=== PATIENT | female | born 1995 | race African-American/Black ===

== ENCOUNTER 2017-03-08 21:22 | Emergency (ER) | payer OTHER, SELFPAY ==
[~2017-03-08] VITALS: Ht 162.6 cm; Wt 135.6 kg
[~2017-03-08 21:22] MED LIST: ACETAMINOPHEN-1 EAC1 ORAL; BACTRIM DS TAB1 EAC1 ORAL; BENAZEPRIL HCL10 MG ORAL; GLIPIZIDE10 MG PO; GLUCOTROL XL10 MG ORAL; IBUPROFEN600 MG ORAL; KEFLEX500 MG ORAL; LANTUS SOL100 UNIT/1 SUBQ; MACROBID100 MG ORAL; METFORMIN HCL500 M4 ORAL; UNOBMED
[2017-03-08] MEDS ORDERED: NKM (21:29)
[2017-03-08 21:30] VITALS: BP 135/82
--- NOTE | 2017-03-08 21:40 | Emergency Room Report ---
History of Present Illness General Chief Complaint: Abdominal Pain Source: Patient Present Illness HPI Is a 21-year-old female with a history of diabetes. She presents with chief complaint abdominal pain with profuse diarrhea for last 3 days. Cramping sharp pain. 8/10. Ambia nauseous and has one episode of vomiting a day. No fever chills nothing made it better. Nothing made it worse. Able to keep things down. No recent antibiotics or travel. Allergies: Coded Allergies: No Known Allergies (Unverified , 02/18/12) Patient History Past Medical History: see triage record, old chart reviewed, DM Past Surgical History: none Pertinent Family History: none Social History: Denies: smoking Last Menstrual Period: 02/06/17 Now: No Immunizations: other Reviewed Nursing Documentation: PMH: Agreed, PSxH: Agreed Nursing Documentation-PMH Past Medical History: No History, Except For Hx Diabetes: Yes Review of Systems Eye: Denies: eye pain, blurred vision ENT: Denies: ear pain, nose congestion, throat swelling Respiratory: Denies: cough, shortness of breath Cardiovascular: Denies: chest pain, palpitations Gastrointestinal: Reports: abdominal pain, diarrhea, nausea, vomiting Musculoskeletal: Denies: back pain, joint pain Skin: Denies: rash Neurological: Denies: headache, numbness Endocrine: Denies: increased thirst, increased urine Hematologic/Lymphatic: Denies: easy bruising All Other Systems: negative except mentioned in HPI Physical Exam Vital Signs Date Time Temp Pulse Resp B/P (MAP) Pulse Ox O2 Delivery O2 Flow Rate FiO2 03/08/17 21:24 98.1 101 16 135/82 98 Room Air vitals normal Sp02 EP Interpretation: reviewed, normal General Appearance: well appearing, no apparent distress, alert, obese Head: normocephalic, atraumatic Eyes: bilateral eye PERRL, bilateral eye EOMI ENT: hearing grossly normal, normal pharynx Neck: full range of motion, supple, no meningismus Respiratory: chest non-tender, lungs clear, normal breath sounds Cardiovascular #1: regular rate, rhythm, no murmur Gastrointestinal: non tender, no mass, no organomegaly, no bruit, non-distended , abnormal bowel sounds - Hyperactive Musculoskeletal: back normal, gait/station normal, normal range of motion Psychiatric: mood/affect normal Skin: warm/dry Medical Decision Making Diagnostic Impression: Primary Impression: Abdominal pain Qualified Codes: R10.84 - Generalized abdominal pain Additional Impressions: Hyperglycemia due to type 2 diabetes mellitus Qualified Codes: E11.65 - Type 2 diabetes mellitus with hyperglycemia; Z79.4 - penitentiary (current) use of insulin Hypertension Qualified Codes: I10 - Essential (primary) hypertension Noncompliance Morbid obesity with BMI of 50.0-59.9, adult ER Course Patient present with abdominal pain and diarrhea. Her blood sugar is very high here. She has a history of diabetes and supposed to be on Lantus 30 units at night. Also supposed to be on glipizide 10 mg and metformin 500 mg twice a day. She also has high blood pressure and supposed to be on benazeprill. She has been taking her medication for over 2 months now. She said that it upset her stomach and cause her to have diarrhea. Patient felt better now. Able to tolerate by mouth. On recheck she has no abdominal pain. No evidence of acute abdomen or obstruction. Insulin given. We'll discharge home. Lab Results Impression labs with hyperglycemia Last Vital Signs Date Time Temp Pulse Resp B/P (MAP) Pulse Ox O2 Delivery O2 Flow Rate FiO2 03/08/17 21:24 98.1 101 16 135/82 98 Room Air Status: improved Disposition: HOME, SELF-CARE Condition: Stable Scripts Metformin Hcl* (METFORMIN HCL*) 500 Mg Tablet 500 MG ORAL TWICE A DAY, #60 TAB Prov: ALEXIS CHAPMAN M.D. 03/08/17 Glipizide* (GLUCOTROL*) 10 Mg Tablet 10 MG ORAL ACBREAKFAST, #30 TAB 0 Refills Prov: ALEXIS CHAPMAN M.D. 03/08/17 Benazepril Hcl* (BENAZEPRIL HCL*) 20 Mg Tablet 20 MG ORAL EVERY 12 HOURS, #30 TAB Prov: ALEXIS CHAPMAN M.D. 03/08/17 Insulin Glargine (LANTUS) 100 Unit/1 Ml Insuln.pen 30 UNITS SUBQ BEDTIME, #1 EA 0 Refills Prov: ALEXIS CHAPMAN M.D. 03/08/17 Patient Instructions: Abdominal Pain, Adult Additional Instructions: Followup with your Dr. in 2 to 3 days. Take your diabetes medication. Return if symptom worsen. ALEXIS CHAPMAN M.D. Mar 08, 2017 21:39
[2017-03-08] MEDS ORDERED: Ketorolac 30mg Inj IV ONE (21:45)
[2017-03-08 21:49] LABS: APPEARANCE,URINE CLEAR; BILIRUBIN, URINE NEGATIVE (NEGATIVE); COLOR,URINE PALE YELLOW; GLUCOSE, URINE (UA) 4+ (NEGATIVE); KETONES,URINE NEGATIVE (NEGATIVE); LEUKOCYTE ESTERASE ,URINE NEGATIVE (NEGATIVE); NITRITE,URINE NEGATIVE (NEGATIVE); PH,URINE 7 (4.5-8.0); PROTEIN,URINE NEGATIVE (NEGATIVE); UROBILINOGEN,URINE 1 MG/DL (0.0-1.0)
[2017-03-08 22:10] LABS: BASOPHILS % (AUTO) 0.6 % (0.0-2.0); EOSINOPHILS % (AUTO) 0.9 % (0.0-3.0); HEMATOCRIT 46.9 % (37.0-47.0); HEMOGLOBIN 14.8 G/DL (12.0-16.0); LYMPHOCYTES % (AUTO) 27.4 % (20.0-45.0); MEAN CORPUSCULAR VOLUME 86 FL (80-99); MONOCYTES % (AUTO) 4.1 % (1.0-10.0); PLATELET COUNT 264 K/UL (150-450); RED BLOOD COUNT 5.47 M/UL (4.20-5.40); RED CELL DISTRIBUTION WIDTH 11.4 % (11.6-14.8); WHITE BLOOD COUNT 12.1 K/UL (4.8-10.8)
[2017-03-08 22:29] LABS: ALANINE AMINOTRANSFERASE 13 U/L (12-78); ALBUMIN 3.7 G/DL (3.4-5.0); ALBUMIN/GLOBULIN RATIO 0.8 (1.0-2.7); ALKALINE PHOSPHATASE 133 U/L (46-116); ANION GAP 10 mmol/L (5-15); ASPARTATE AMINO TRANSFERASE 8 U/L (15-37); BILIRUBIN,TOTAL 0.3 MG/DL (0.2-1.0); BLOOD UREA NITROGEN 5 mg/dL (7-18); CALCIUM 9.4 MG/DL (8.5-10.1); CARBON DIOXIDE 24 MMOL/L (21-32); CHLORIDE 96 MMOL/L (98-107); POTASSIUM 3.8 MMOL/L (3.5-5.1); SODIUM 130 MMOL/L (136-145)
[2017-03-08] MEDS ORDERED: METFORMIN HCL500 M1 ORAL (22:52)
[2017-03-08] MEDS ORDERED: LANTUS SOL100 UNIT/1 SUBQ (22:52)
[2017-03-08] MEDS ORDERED: GLUCOTROL10 MG ORAL (22:52)
[2017-03-08] MEDS ORDERED: BENAZEPRIL HCL20 MG ORAL (22:52)
[2017-03-08 23:30] VITALS: BP 135/79
[2017-03-08 23:45] VITALS: BP 130/79
== END 2017-03-08 23:45 | disposition home or self-care (01) ==
LOC: MERGE 21:50 → EMR 21:50
DX: R10.84 Generalized abdominal pain (principal); E11.65 Type 2 diabetes mellitus with hyperglycemia; Z79.4 Long term (current) use of insulin; I10 Essential (primary) hypertension; Z91.19 Patient's noncompliance with other medical treatment and regimen; E66.01 Morbid (severe) obesity due to excess calories; Z68.43 Body mass index [BMI] 50.0-59.9, adult
CPT/HCPCS: 36415; 80053; 81003; 81025; 82962; 83690; 85025; 96361; 96374; 96375; 99284; J1815; J1885

== ENCOUNTER 2020-01-11 21:25 | Emergency (ER) | payer OTHER ==
[~2020-01-11] VITALS: Ht 162.6 cm; Wt 88.0 kg
[~2020-01-11 21:25] MED LIST changes: +BENAZEPRIL HCL20 MG ORAL; +GLUCOTROL10 MG ORAL; +METFORMIN HCL500 M1 ORAL; +NKM
[2020-01-11 21:40] VITALS: BP 160/98
[2020-01-11 22:00] LABS: APPEARANCE,URINE SLIGHTLY CLOUDY; BILIRUBIN, URINE NEGATIVE (NEGATIVE); COLOR,URINE AMBER; GLUCOSE, URINE (UA) 2+ (NEGATIVE); KETONES,URINE 2+ (NEGATIVE); LEUKOCYTE ESTERASE ,URINE 1+ (NEGATIVE); NITRITE,URINE NEGATIVE (NEGATIVE); PH,URINE 7 (4.5-8.0); PROTEIN,URINE 1+ (NEGATIVE); UROBILINOGEN,URINE 4 MG/DL (0.0-1.0)
[2020-01-11] MEDS ORDERED: Morphine Sulfate 4mg/ml Inj (IV USE ONLY) IVP ONE (22:00)
[2020-01-11 22:07] LABS: BASOPHILS % (AUTO) 1.1 % (0.0-2.0); EOSINOPHILS % (AUTO) 0.3 % (0.0-3.0); HEMATOCRIT 41.9 % (37.0-47.0); HEMOGLOBIN 13.5 G/DL (12.0-16.0); LYMPHOCYTES % (AUTO) 19.3 % (20.0-45.0); MEAN CORPUSCULAR VOLUME 91 FL (80-99); MONOCYTES % (AUTO) 4.5 % (1.0-10.0); NEUTROPHILS % (AUTO) 74.8 % (45.0-75.0); PLATELET COUNT 160 K/UL (150-450); RED BLOOD COUNT 4.58 M/UL (4.20-5.40); RED CELL DISTRIBUTION WIDTH 12.4 % (11.6-14.8); WHITE BLOOD COUNT 13.1 K/UL (4.8-10.8)
[2020-01-11 22:13] LABS: INR 1.1 (0.9-1.1)
[2020-01-11 22:16] LABS: ANION GAP 3 mmol/L (5-15); BLOOD UREA NITROGEN 7 mg/dL (7-18); CALCIUM 9.5 MG/DL (8.5-10.1); CARBON DIOXIDE 32 MMOL/L (21-32); CHLORIDE 103 MMOL/L (98-107); CREATININE 0.8 MG/DL (0.55-1.30); POTASSIUM 3.6 MMOL/L (3.5-5.1); SODIUM 138 MMOL/L (136-145)
[2020-01-11 22:21] LABS: ALANINE AMINOTRANSFERASE 17 U/L (12-78); ALBUMIN 3.8 G/DL (3.4-5.0); ALKALINE PHOSPHATASE 83 U/L (46-116); ASPARTATE AMINO TRANSFERASE 15 U/L (15-37); BILIRUBIN,TOTAL 0.5 MG/DL (0.2-1.0)
--- NOTE | 2020-01-11 22:49 | Emergency Room Report ---
History of Present Illness General Chief Complaint: Abdominal Pain Source: Patient Present Illness HPI 24-year-old female with past medical history of left ovarian cyst and marijuana use presents with diffuse abdominal pain x4 days. Patient states that she just moved here from [facility]. She was in the ER [facility] yesterday and was diagnosed with a left ovarian cyst. She tried smoking marijuana today 2 hours prior to arrival to alleviate her pain, however it made it worse. She is nauseous but does not endorse any vomiting, dysuria, hematuria, vaginal discharge. She is sexually active and not concern for sexually transmitted infection. Last menstrual period was 3 weeks ago. Last Pap smear was several years ago. She does not know what the results were. She had a similar episode several years ago during [facility] time and received an EGD which found gastritis, otherwise no ulcerations or other acute findings. Last bowel movement was several days ago. Last p.o. intake was yesterday. The patient's symptoms were gradual onset, severity was moderate, duration since 4 days. Quality: Aching, cramping Past medical history: Gastritis, left ovarian cyst Past surgical history: Denies Smoking: Denies Alcohol use: Occasional Drug use: Marijuana Review of systems: CONST: No fevers or chills, No night sweats PULMONARY: No productive cough, No shortness of breath CARDIAC: No chest pain, No palpitations GI: No vomiting, No diarrhea , No melena_or_BRBPR : No dysuria, No hematuria, No discharge NEURO: No new_focal_weakness_or_numbness, No confusion, No vision changes 14 point Review of Systems is otherwise negative except per HPI Physical Exam: GENERAL: Awake_alert_ nontoxic, no acute distress Spo2 92% on RA -normal EYES: Extraocular muscles are intact. Conjunctivae clear. Lids without swelling ENT: External nose and ear normal_in_appearance. Oropharynx clear. Head_ atraumatic, Moist_oral_mucosa NECK: No JVD. No meningismus. No thyromegaly. Supple. Trachea midline RESP: Normal respiratory effort. Symmetric rise. No stridor. Clear_to_ auscultation_No_rales_No_wheezes CARDIAC: Tachycardic. And regular rhytm. No_significant pedal edema. ABDOMEN: Soft. Nondistended. Nontender_No_rebound_or_guarding. No CVA tenderness palpation. Negative Joya's. Negative Rovsing's. Negative obturator sign MSK: Normal muscle tone, without rigidity. Extremities without asymmetric deformity or swelling. SKIN: Warm and dry. No visible cyanosis or pallor NEUROLOGIC: Alert, oriented x3. Motor_and_sensation_grossly_intact. No truncal ataxia. Gait_normal Psych: Normal mood and affect, normal judgment and insight - COORDINATION OF CARE Case was discussed with: Patient Any labs and imaging that were ordered were interpreted as part of the medical decision making: Medical Decision Making/Plan: Differential diagnosis includes cyclic vomiting syndrome from marijuana , appendicitis, diverticulitis, ectopic , ovarian torsion, hemorrhagic ovarian cyst, PID (pelvic inflammatory disease), kidney stone, UTI, DOUBTsmall bowel obstruction, volvulus, AAA, pancreatitis, among others. Patient is well appearing with stable vital signs. Abdominal exam is non peritoneal with no guarding or rebound. No CVA tenderness to palpation. UDS is positive for marijuana and opiates. She is not . No metabolic abnormalities. test is negative, ruling out ectopic . CT and US pending. Care signed out to oncoming ER physician Dr Olmedo pending imaging ED intervention included morphine and zofran for pain control. May benefit from haldol if nausea persists. The patient has no significant risk factors for AAA (abdominal aortic aneurysm) such as age over 50 with history of hypertension, connective tissue disorder, or 1st degree relative with AAA. In addition, the patient has normal dorsalis pedis pulses, no radiation of pain to the back, and no pulsatile mass felt on exam. The patients profile was overall low risk for AAA and definitive workup was not pursued. The patients presentation is not consistent with ovarian torsion or hemorrhagic ovarian cyst, pain was not sudden onset, not associated with vomiting, and has no significant tenderness on exam. The patient denies any bloody stool and has no pain out of proportion to exam, and no significant risk factors for mesenteric ischemia such as atrial fibrillation or severe PAD/PVD (peripheral arterial / vascular disease), thus definitive workup to rule out mesenteric ischemia was not pursued. Allergies: Coded Allergies: No Known Allergies (Unverified , 08/23/15) COVID-19 Screening Contact w/high risk pt: No Experienced COVID-19 symptoms?: No COVID-19 Testing performed POWERHOUSE OPERATOR: No Patient History Last Menstrual Period: 12/17 Now: No : 0 Para: 0 Nursing Documentation-PMH Hx Hypertension: Yes Hx Diabetes: Yes Physical Exam Vital Signs Date Time Temp Pulse Resp B/P (MAP) Pulse Ox O2 Delivery O2 Flow Rate FiO2 01/11/20 21:30 98.1 104 22 161/111 (128) 98 Room Air 01/11/20 21:40 99 Sp02 EP Interpretation: reviewed, normal Medical Decision Making Diagnostic Impression: Primary Impression: Abdominal pain Additional Impression: Nausea & vomiting Last Vital Signs Date Time Temp Pulse Resp B/P (MAP) Pulse Ox O2 Delivery O2 Flow Rate FiO2 01/11/20 21:40 98.1 100 23 160/98 99 Room Air 01/11/20 21:40 99 Admit Decision Time: 22:53 Condition: Stable Referrals: TAHIRA MCWILLIAMS,REFERRING (PCP) Marley Alba D.O. Jan 11, 2020 22:49
--- NOTE | 2020-01-11 23:06 | Diagnostic Imaging Report ---
EXAM: CT Abdomen and Pelvis Without Intravenous Contrast CLINICAL HISTORY: ABD PAIN Per notes, nausea vomiting and lower abdominal pain. TECHNIQUE: Axial computed tomography images of the abdomen and pelvis without intravenous contrast. CTDI is 10 mGy and DLP is 541 mGy-cm. One or more of the following dose reduction techniques were used: automated exposure control, adjustment of the mA and/or kV according to patient size, use of iterative reconstruction technique. COMPARISON: CT abdomen and pelvis 08/23/2015. FINDINGS: Evaluation of the vasculature and soft tissue limited on this noncontrast exam. Lung bases: Unremarkable. No mass. No consolidation. ABDOMEN: Liver: Hepatomegaly otherwise unremarkable. Gallbladder and bile ducts: Contracted. No extrahepatic biliary ductal dilatation seen. Pancreas: Unremarkable. No ductal dilation. Spleen: Unremarkable. No splenomegaly. Adrenals: Unremarkable. No mass. Kidneys and ureters: Unremarkable. No obstructing stones. No hydronephrosis. Stomach and bowel: Unremarkable. No obstruction. No mucosal thickening. PELVIS: Appendix: Normal appearing appendix (coronal 8: 42). Bladder: Unremarkable. No stones. Reproductive: Unremarkable as visualized. ABDOMEN and PELVIS: Intraperitoneal space: Unremarkable. No free air. No significant fluid collection. No ascites. Bones/joints: Unremarkable. Soft tissues: Diffuse anasarca. Vasculature: Unremarkable. No abdominal aortic aneurysm. Lymph nodes: Unremarkable. No enlarged lymph nodes. IMPRESSION: No acute findings identified on this noncontrast CT to explain the patient's symptoms. Nonspecific diffuse anasarca. Hepatomegaly.
[2020-01-11] MEDS ORDERED: IBUPROFEN600 M1 ORAL (23:08)
[2020-01-11] MEDS ORDERED: ONDANSETRON ODT4 MG BC (23:10)
--- NOTE | 2020-01-11 23:10 | Emergency Room Report ---
Physical Exam Vital Signs Date Time Temp Pulse Resp B/P (MAP) Pulse Ox O2 Delivery O2 Flow Rate FiO2 01/11/20 21:30 98.1 104 22 161/111 (128) 98 Room Air 01/11/20 21:40 99 Medical Decision Making Diagnostic Impression: Primary Impression: Ovarian cyst Additional Impressions: Enlarged liver Nausea & vomiting Abdominal pain ER Course Assumed care of the patient from the previous provider at approximately 2200 hrs. Please refer to initial note for full history and physical exam. Briefly, 24-year-old female with recent diagnosed ovarian cyst presents for evaluation of abdominal pain. Labs and CT have returned largely within normal limits. Hepatomegaly noted and some free abdominal fluid. A left-sided ovarian cyst is again demonstrated according to serology technician. Likely accounting for the patient's symptoms. No further emesis in the ED. Patient stable for outpatient follow-up with PMD and [facility] B[facility]NER JOURNEYMAN. Copies of imaging and labs included in her discharge paperwork. Discussed marijuana cessation. Stable for outpatient follow-up and instructed to return with new or worsening symptoms. Laboratory Tests Test 01/11/20 21:40 White Blood Count 13.1 K/UL (4.8-10.8) H Red Blood Count 4.58 M/UL (4.20-5.40) Hemoglobin 13.5 G/DL (12.0-16.0) Hematocrit 41.9 % (37.0-47.0) Mean Corpuscular Volume 91 FL (80-99) Mean Corpuscular Hemoglobin 29.6 PG (27.0-31.0) Mean Corpuscular Hemoglobin Concent 32.3 G/DL (32.0-36.0) Red Cell Distribution Width 12.4 % (11.6-14.8) Platelet Count 160 K/UL (150-450) Mean Platelet Volume 13.1 FL (6.5-10.1) H Neutrophils (%) (Auto) 74.8 % (45.0-75.0) Lymphocytes (%) (Auto) 19.3 % (20.0-45.0) L Monocytes (%) (Auto) 4.5 % (1.0-10.0) Eosinophils (%) (Auto) 0.3 % (0.0-3.0) Basophils (%) (Auto) 1.1 % (0.0-2.0) Prothrombin Time 11.7 SEC (9.30-11.50) H Prothrombin Time INR 1.1 (0.9-1.1) Activated Partial Thromboplast Time 25 SEC (23-33) Urine Color Key Urine Appearance Slightly cloudy Urine pH 7 (4.5-8.0) Urine Specific [place] 1.015 (1.005-1.035) Urine Protein 1+ (NEGATIVE) H Urine Glucose (UA) 2+ (NEGATIVE) H Urine Ketones 2+ (NEGATIVE) H Urine Blood Negative (NEGATIVE) Urine Nitrite Negative (NEGATIVE) Urine Bilirubin Negative (NEGATIVE) Urine Ictotest Negative (NEGATIVE) Urine Urobilinogen 4 MG/DL (0.0-1.0) H Urine Leukocyte Esterase 1+ (NEGATIVE) H Urine RBC 0 /HPF (0 - 2) Urine WBC 2-4 /HPF (0 - 2) Urine Squamous Epithelial Cells Moderate /LPF (NONE/OCC) H Urine Amorphous Sediment Few /LPF (NONE) H Urine Bacteria Few /HPF (NONE) Urine HCG, Qualitative Negative (NEGATIVE) Sodium Level 138 MMOL/L (136-145) Potassium Level 3.6 MMOL/L (3.5-5.1) Chloride Level 103 MMOL/L (98-107) Carbon Dioxide Level 32 MMOL/L (21-32) Anion Gap 3 mmol/L (5-15) L Blood Urea Nitrogen 7 mg/dL (7-18) Creatinine 0.8 MG/DL (0.55-1.30) Estimated Glomerular Filtration Rate > 60 mL/min (>60) Glucose Level 247 MG/DL (74-106) H Calcium Level 9.5 MG/DL (8.5-10.1) Total Bilirubin 0.5 MG/DL (0.2-1.0) Aspartate Amino Transferase (AST) 15 U/L (15-37) Alanine Aminotransferase (ALT) 17 U/L (12-78) Alkaline Phosphatase 83 U/L (46-116) Total Protein 7.6 G/DL (6.4-8.2) Albumin 3.8 G/DL (3.4-5.0) Globulin 3.8 g/dL Albumin/Globulin Ratio 1.0 (1.0-2.7) Lipase 85 U/L (73-393) Human Chorionic Gonadotropin, Quant 2 mIU/mL (1-6) Urine Opiates Screen Positive (NEGATIVE) H Urine Barbiturates Screen Negative (NEGATIVE) Phencyclidine (PCP) Screen Negative (NEGATIVE) Urine Amphetamines Screen Negative (NEGATIVE) Urine Benzodiazepines Screen Negative (NEGATIVE) Urine Cocaine Screen Negative (NEGATIVE) Urine Marijuana (THC) Screen Positive (NEGATIVE) H CT/MRI/US Diagnostic Results CT/MRI/US Diagnostic Results : Impression IMPRESSION: No acute findings identified on this noncontrast CT to explain the patient's symptoms. Nonspecific diffuse anasarca. Hepatomegaly. Dictated By: Daryn Troy M.D. Electronically Signed By: Daryn Troy M.D. Signed Date/Time 01/11/20 [id number] CC: Marley Alba D.O. Last Vital Signs Date Time Temp Pulse Resp B/P (MAP) Pulse Ox O2 Delivery O2 Flow Rate FiO2 01/11/20 21:40 98.1 100 23 160/98 99 Room Air 01/11/20 21:40 99 Disposition: HOME, SELF-CARE Condition: Stable Scripts Ondansetron Odt* (ZOFRAN ODT*) 4 Mg Tab.rapdis 4 MG BC EVERY 6 HOURS PRN for Nausea & Vomiting, #10 TAB 0 Refills Prov: Jose Olmedo MD 01/11/20 Ibuprofen* (MOTRIN*) 600 Mg Tablet 600 MG ORAL Q6H PRN for For Pain, #30 TAB 0 Refills Prov: Jose Olmedo MD 01/11/20 Patient Instructions: Ovarian Cyst Additional Instructions: Please follow-up with your primary care doctor and [facility] JOURNEY[facility] in the next 1 to 3 days to discuss this emergency department visit and for reevaluation. Discussed the imaging results included here in your discharge paperwork. If you have any new or worsening symptoms please return to the emergency department for reevaluation. Please note that this report is being documented using [employer] technology. This can lead to erroneous entry secondary to incorrect interpretation by the dictating instrument. Jose Olmedo MD Jan 11, 2020 23:10
[2020-01-12] MEDS ORDERED: Ketorolac 30mg Inj IV ONE (00:30)
--- NOTE | 2020-01-12 01:07 | Diagnostic Imaging Report ---
EXAM: US Pelvis Transabdominal and Transvaginal, Complete CLINICAL HISTORY: PAIN TECHNIQUE: Real-time complete transabdominal and transvaginal pelvic ultrasound with image documentation. Transvaginal imaging was used for better evaluation of the endometrium and adnexa. COMPARISON: No relevant prior studies available. FINDINGS: Uterus/cervix: Uterus 6.9 x 3.1 cm. Endometrium 3 mm. No myometrial mass. Right ovary: Right ovary 2.7 x 1.4 x 3 cm. Normal blood flow. Left ovary: Left ovary 3 x 2 x 2.9 cm. Normal blood flow. Free fluid: Small free fluid. IMPRESSION: No ovarian torsion.
[2020-01-12 01:27] VITALS: BP 142/88
== END 2020-01-12 01:27 | disposition home or self-care (01) ==
LOC: EMR 21:40
DX: R10.84 Generalized abdominal pain (principal); R11.2 Nausea with vomiting, unspecified; I10 Essential (primary) hypertension; E11.9 Type 2 diabetes mellitus without complications; F12.90 Cannabis use, unspecified, uncomplicated; F11.90 Opioid use, unspecified, uncomplicated; Z79.4 Long term (current) use of insulin; Z79.84 Long term (current) use of oral hypoglycemic drugs
CPT/HCPCS: 36415; 74176; 76830; 76856; 80053; 80307; 81003; 81025; 83690; 84702; 85025; 85610; 85730; 96361; 96374; 96375; J1885; J2270; J2405; J7030; Z7502; 99284